=== PATIENT | female | born 1955 | race African-American/Black ===

== ENCOUNTER 2020-11-19 09:08 | Inpatient (IN) | payer MEDICAID, MEDICARE ==
[~2020-11-19] VITALS: Ht 172.7 cm; Wt 111.7 kg
[2020-11-19] MEDS ORDERED: SODIUM CHLORIDE 0.9% 1,000 ML IV ONE (09:45)
[2020-11-19 10:29] LABS: Basophils # (auto) 0.1 10 ^3/uL (0-0.2); Basophils % (auto) 0.5 % (0.0-2.0); Eosinophils # (auto) 0.1 10 ^3/uL (0-0.8); Hematocrit 45.7 % (36.0-46.0); Hemoglobin 15.3 g/dL (12.2-16.2); Lymphocytes # (auto) 2.6 10 ^3/uL (0.4-5.4); Lymphocytes % (auto) 20.3 % (10.0-50.0); Mean Corpuscular Hemoglobin 31.4 pg (28.0-32.0); Mean Corpuscular Hgb Conc. 33.6 g/dL (32.0-36.0); Mean Corpuscular Volume 93.6 fL (80.0-100.0); Monocytes # (auto) 0.6 10 ^3/uL (0-1.3); Monocytes % (auto) 4.6 % (0.0-12.0); Neutrophils # (auto) 9.4 10 ^3/uL (1.6-8.6); Neutrophils % (auto) 73.6 % (37.0-80.0); Nucleated Red Blood Cells % 0.3 %; Platelet Count (auto) 277 10^3/uL (140-450); Red Blood Cells 4.88 10^6/uL (4.0-5.20); Red Cell Distribution Width 15.5 % (11.8-14.3); White Blood Cell 12.7 10^3/uL (4.4-10.8)
[2020-11-19 10:42] LABS: Albumin 3.6 g/dL (3.4-5.0); Calcium 8.8 mg/dL (8.5-10.1); Potassium 3.4 mmol/L (3.5-5.1)
[2020-11-19 10:48] LABS: BUN/Creatinine Ratio 10.5; Bilirubin, Total 0.5 mg/dL (0.2-1.0); Total Protein 7.8 g/dL (6.4-8.2)
[2020-11-19] MEDS ORDERED: POTASSIUM EFFERVESENT TAB 25 MEQ PO ONE (12:30)
[2020-11-19 12:47] LABS: Urine Bacteria FEW /hpf (None Seen); Urine Blood 1+ /uL (Negative); Urine Hyaline Cast FEW /lpf (0 - 2); Urine Specific Gravity 1.008 (1.001-1.035); Urine WBC 8 /hpf (0 - 5)
[2020-11-19] MEDS ORDERED: IOHEXOL 350 MG/ML 100ML IJ ONE (13:44)
[2020-11-19] MEDS ORDERED: ASPirin-EC 81 mg tab PO ONE (13:45)
[2020-11-19] MEDS ORDERED: HEPARIN SODIUM (PORCINE) 5000 UNITS/ML 1ML VIAL IV ONE (14:30)
[2020-11-19 15:21] LABS: INR 1.14 (0.9-1.15); Partial Thromboplastin Time 31.7 sec (23.0-31.2)
[2020-11-19] MEDS ORDERED: NITROGLYCERIN 0.4 MG SL TAB SL PRN (15:45)
[2020-11-19] MEDS ORDERED: MORPHINE SULF INJ 2 MG/ML SYRINGE 1ML IV PRN ×2 (15:45→16:15)
[2020-11-19] MEDS: HEPARIN DRIP/D5W 100UNITS/ML 250 ML IV SCH (15:52)
[2020-11-19] MEDS ORDERED: DEXTROSE (50%) 50ML SYRG IV PRN (16:15)
[2020-11-19] MEDS ORDERED: TEMAZEPAM 15 MG CAP PO PRN (16:15)
[2020-11-19] MEDS ORDERED: ACETAMINOPHEN 500 MG TAB PO PRN (16:15)
[2020-11-19] MEDS ORDERED: PROMETHAZINE HCL 25 MG/ML 1ML IV PRN (16:15)
[2020-11-19] MEDS ORDERED: traMADol HCL 50 MG TAB PO PRN (16:15)
[2020-11-19] MEDS: SODIUM CHLORIDE 0.9% 1,000 ML IV SCH (16:29)
[2020-11-19] MEDS: ACCU-CHEK COMFORT CURVE STRIP VI SCH ×2 (17:17→22:12)
[2020-11-19] MEDS: InsuLIN REG 1unit/0.01ml Soln (100units/ml) SC SCH ×2 (17:21→22:00)
[2020-11-19 17:49] VITALS: BP 153/94
[2020-11-19 18:00] VITALS: BP 153/94
[2020-11-19] MEDS ORDERED: LISI-707 PO (18:43)
[2020-11-19 20:00] VITALS: BP 155/108
[2020-11-19 21:00] VITALS: BP 149/104
[2020-11-19] MEDS: FAMOTIDINE 20 MG TAB PO SCH (21:24)
[2020-11-19 22:00] VITALS: BP 152/105
[2020-11-19 23:00] VITALS: BP 127/97
[2020-11-19 23:26] LABS: INR 1.19 (0.9-1.15)
[2020-11-19 23:28] LABS: Partial Thromboplastin Time > 139.0 sec (23.0-31.2)
[2020-11-20] VITALS (22 sets, daily range): BP systolic 119–156; BP diastolic 75–108
[2020-11-20 03:54] LABS: Basophils # (auto) 0.1 10 ^3/uL (0-0.2); Basophils % (auto) 0.9 % (0.0-2.0); Eosinophils # (auto) 0.1 10 ^3/uL (0-0.8); Eosinophils % (auto) 0.8 % (0.0-7.0); Hematocrit 42.7 % (36.0-46.0); Hemoglobin 14.2 g/dL (12.2-16.2); Lymphocytes # (auto) 3.2 10 ^3/uL (0.4-5.4); Mean Corpuscular Hemoglobin 31.6 pg (28.0-32.0); Mean Corpuscular Hgb Conc. 33.4 g/dL (32.0-36.0); Mean Corpuscular Volume 94.6 fL (80.0-100.0); Monocytes # (auto) 0.8 10 ^3/uL (0-1.3); Monocytes % (auto) 9.8 % (0.0-12.0); Neutrophils # (auto) 4.5 10 ^3/uL (1.6-8.6); Neutrophils % (auto) 51.5 % (37.0-80.0); Nucleated Red Blood Cells % 0.1 %; Platelet Count (auto) 206 10^3/uL (140-450); Red Blood Cells 4.51 10^6/uL (4.0-5.20); Red Cell Distribution Width 15.3 % (11.8-14.3); White Blood Cell 8.7 10^3/uL (4.4-10.8)
[2020-11-20 04:15] LABS: Albumin 3.1 g/dL (3.4-5.0); Calcium 8.2 mg/dL (8.5-10.1); Potassium 3.3 mmol/L (3.5-5.1)
[2020-11-20 04:19] LABS: BUN/Creatinine Ratio 13.5; Bilirubin, Total 0.7 mg/dL (0.2-1.0); Total Protein 6.6 g/dL (6.4-8.2)
[2020-11-20] MEDS: SODIUM CHLORIDE 0.9% 1,000 ML IV SCH ×3 (04:34→21:53)
[2020-11-20 05:18] LABS: Partial Thromboplastin Time > 139.0 sec (23.0-31.2)
[2020-11-20] MEDS: ACCU-CHEK COMFORT CURVE STRIP VI SCH ×4 (06:02→21:28)
[2020-11-20] MEDS: InsuLIN REG 1unit/0.01ml Soln (100units/ml) SC SCH ×4 (06:02→21:28)
[2020-11-20] MEDS: HEPARIN DRIP/D5W 100UNITS/ML 250 ML IV SCH (06:48)
[2020-11-20] MEDS ORDERED: POTASSIUM CHL 20MEQ/100ML 100 ML IV ONE ×2 (08:28→08:30)
[2020-11-20] MEDS: FAMOTIDINE 20 MG TAB PO SCH ×2 (09:36→21:27)
[2020-11-20] MEDS ORDERED: fentaNYL CITRATE 100 MCG/2 ML VL ONE (09:50)
[2020-11-20] MEDS ORDERED: LIDOCAINE 2%HCL (LOCAL ANESTH.) INJ 20ML MDV ONE (09:50)
[2020-11-20] MEDS ORDERED: IOHEXOL 350 MG/ML 100ML IJ ONE (09:50)
[2020-11-20] MEDS ORDERED: MIDAZOLAM HCL 1MG/1ML-2 ML VIAL ONE (09:50)
[2020-11-20] MEDS ORDERED: ANGIOMAX 250 MG VIAL IV ONE (10:49)
[2020-11-20] MEDS ORDERED: SODIUM CHL 0.9% 100 ML ONE (10:49)
[2020-11-20] MEDS ORDERED: METOPROLOL TARTRATE 50 MG TAB PO ONE (11:00)
[2020-11-20] MEDS ORDERED: LISINOPRIL 20 MG TAB PO ONE (11:00)
[2020-11-20] MEDS ORDERED: ASPirin 81 mg TAB PO ONE (11:00)
[2020-11-20] MEDS ORDERED: ATORVASTATIN 20 MG TAB PO ONE (11:00)
[2020-11-20] MEDS ORDERED: RIVAROXABAN 15 MG TAB PO ONE (12:30)
[2020-11-20 14:01] LABS: Cholesterol 151 mg/dL (< 200); HDL Cholesterol 57 mg/dL (40-59); LDL Cholesterol 76 mg/dL (< 100); Triglycerides 127 mg/dL (< 150)
[2020-11-20] MEDS: ATORVASTATIN 20 MG TAB PO SCH (21:26)
[2020-11-20] MEDS: RIVAROXABAN 15 MG TAB PO SCH (21:27)
[2020-11-20] MEDS: METOPROLOL TARTRATE 50 MG TAB PO SCH (21:27)
[2020-11-21] VITALS (23 sets, daily range): BP systolic 124–165; BP diastolic 73–95
[2020-11-21] MEDS: InsuLIN REG 1unit/0.01ml Soln (100units/ml) SC SCH ×4 (06:12→22:05)
[2020-11-21] MEDS: ACCU-CHEK COMFORT CURVE STRIP VI SCH ×4 (06:12→22:14)
[2020-11-21] MEDS: SODIUM CHLORIDE 0.9% 1,000 ML IV SCH ×2 (08:15→17:21)
[2020-11-21] MEDS: ASPirin 81 mg TAB PO SCH (09:26)
[2020-11-21] MEDS: METOPROLOL TARTRATE 50 MG TAB PO SCH ×2 (09:26→22:13)
[2020-11-21] MEDS: LISINOPRIL 20 MG TAB PO SCH (09:26)
[2020-11-21] MEDS: RIVAROXABAN 15 MG TAB PO SCH ×2 (09:27→22:00)
[2020-11-21] MEDS: FAMOTIDINE 20 MG TAB PO SCH ×2 (09:27→22:13)
[2020-11-21] MEDS: ATORVASTATIN 20 MG TAB PO SCH (22:13)
[2020-11-22] VITALS (11 sets, daily range): BP systolic 127–152; BP diastolic 73–87
[2020-11-22] MEDS: SODIUM CHLORIDE 0.9% 1,000 ML IV SCH ×2 (02:25→15:28)
[2020-11-22 03:48] LABS: Basophils # (auto) 0.1 10 ^3/uL (0-0.2); Basophils % (auto) 0.8 % (0.0-2.0); Eosinophils # (auto) 0.2 10 ^3/uL (0-0.8); Eosinophils % (auto) 2.6 % (0.0-7.0); Hematocrit 35.1 % (36.0-46.0); Hemoglobin 11.8 g/dL (12.2-16.2); Lymphocytes # (auto) 2.3 10 ^3/uL (0.4-5.4); Lymphocytes % (auto) 34.2 % (10.0-50.0); Mean Corpuscular Hgb Conc. 33.6 g/dL (32.0-36.0); Mean Corpuscular Volume 95.3 fL (80.0-100.0); Monocytes # (auto) 0.7 10 ^3/uL (0-1.3); Monocytes % (auto) 10.4 % (0.0-12.0); Neutrophils # (auto) 3.5 10 ^3/uL (1.6-8.6); Nucleated Red Blood Cells % 0.1 %; Platelet Count (auto) 187 10^3/uL (140-450); Red Blood Cells 3.69 10^6/uL (4.0-5.20); Red Cell Distribution Width 14.9 % (11.8-14.3); White Blood Cell 6.8 10^3/uL (4.4-10.8)
[2020-11-22 04:02] LABS: Albumin 2.6 g/dL (3.4-5.0); Calcium 7.7 mg/dL (8.5-10.1); Potassium 3.6 mmol/L (3.5-5.1)
[2020-11-22 04:06] LABS: BUN/Creatinine Ratio 13.8; Bilirubin, Total 0.6 mg/dL (0.2-1.0); Total Protein 5.8 g/dL (6.4-8.2)
[2020-11-22] MEDS: InsuLIN REG 1unit/0.01ml Soln (100units/ml) SC SCH ×2 (06:06→11:30)
[2020-11-22] MEDS: ACCU-CHEK COMFORT CURVE STRIP VI SCH ×2 (06:06→12:43)
[2020-11-22] MEDS: ASPirin 81 mg TAB PO SCH (09:29)
[2020-11-22] MEDS: RIVAROXABAN 15 MG TAB PO SCH (09:29)
[2020-11-22] MEDS: FAMOTIDINE 20 MG TAB PO SCH (09:29)
[2020-11-22] MEDS: METOPROLOL TARTRATE 50 MG TAB PO SCH (09:30)
[2020-11-22] MEDS: LISINOPRIL 20 MG TAB PO SCH (09:30)
== END 2020-11-22 16:21 | disposition home or self-care (01) | DRG 134 ==
LOC: EDBD 09:08 → ER 09:08 → TELE 15:40 → ICU WEST 18:00 → TELE-CENTR 11-22 08:03
PROVIDERS: ADMIT Internal Medicine; ATTEND Family Medicine
PROC: B31T1ZZ Fluoroscopy of Left Pulmonary Artery using Low Osmolar Contrast (ICD-10-PCS; principal; 2020-11-20)
PROC: B31S1ZZ Fluoroscopy of Right Pulmonary Artery using Low Osmolar Contrast (ICD-10-PCS; 2020-11-20)
PROC: 02CR3ZZ Extirpation of Matter from Left Pulmonary Artery, Percutaneous Approach (ICD-10-PCS; 2020-11-20)
DX: I26.99 Other pulmonary embolism without acute cor pulmonale (principal); I21.4 Non-ST elevation (NSTEMI) myocardial infarction; J96.01 Acute respiratory failure with hypoxia; I27.20 Pulmonary hypertension, unspecified; I50.811 Acute right heart failure; E11.65 Type 2 diabetes mellitus with hyperglycemia; E66.01 Morbid (severe) obesity due to excess calories; I11.0 Hypertensive heart disease with heart failure; E87.6 Hypokalemia; I49.3 Ventricular premature depolarization; J98.11 Atelectasis; E78.00 Pure hypercholesterolemia, unspecified; Z20.822 Contact with and (suspected) exposure to COVID-19; Z68.36 Body mass index [BMI] 36.0-36.9, adult; Z79.01 Long term (current) use of anticoagulants; Z86.711 Personal history of pulmonary embolism; E78.5 Hyperlipidemia, unspecified; F17.210 Nicotine dependence, cigarettes, uncomplicated; Z79.4 Long term (current) use of insulin; Z83.3 Family history of diabetes mellitus; N30.01 Acute cystitis with hematuria
CPT/HCPCS: 36415; 37184; 71045; 71275; 75743; 80053; 80061; 81001; 82550; 82962; 83036; 83735; 84443; 84484; 85025; 85379; 85610; 85730; 87081; 87426; 93005; 93306; 93970; 96361; 96374; 96375; 99152; 99153; 99291; G0378; J1815; J2250; J3480

== ENCOUNTER 2020-12-11 10:33 | Emergency (ER) | payer MEDICAID, MEDICARE ==
[~2020-12-11] VITALS: Ht 172.7 cm; Wt 106.6 kg
[~2020-12-11 10:33] MED LIST: LISI-707 PO
[2020-12-11 11:36] LABS: Urine Bacteria MOD /hpf (None Seen); Urine Blood 3+ /uL (Negative); Urine Mucus FEW (None Seen); Urine Specific Gravity 1.014 (1.001-1.035); Urine WBC 91 /hpf (0 - 5); Urine WBC Clumps PRESENT /hpf (None Seen)
[2020-12-11 12:01] LABS: Basophils # (auto) 0.1 10 ^3/uL (0-0.2); Basophils % (auto) 1.2 % (0.0-2.0); Eosinophils # (auto) 0.1 10 ^3/uL (0-0.8); Hematocrit 41.4 % (36.0-46.0); Hemoglobin 13.9 g/dL (12.2-16.2); Lymphocytes # (auto) 1.8 10 ^3/uL (0.4-5.4); Lymphocytes % (auto) 33.6 % (10.0-50.0); Mean Corpuscular Hemoglobin 30.7 pg (28.0-32.0); Mean Corpuscular Hgb Conc. 33.6 g/dL (32.0-36.0); Mean Corpuscular Volume 91.3 fL (80.0-100.0); Monocytes # (auto) 0.4 10 ^3/uL (0-1.3); Monocytes % (auto) 7.7 % (0.0-12.0); Neutrophils % (auto) 55.5 % (37.0-80.0); Nucleated Red Blood Cells % 0.1 %; Platelet Count (auto) 381 10^3/uL (140-450); Red Blood Cells 4.53 10^6/uL (4.0-5.20); Red Cell Distribution Width 14.4 % (11.8-14.3); White Blood Cell 5.3 10^3/uL (4.4-10.8)
[2020-12-11 12:15] LABS: INR 1.15 (0.9-1.15); Partial Thromboplastin Time 35.3 sec (23.0-31.2)
[2020-12-11 12:19] LABS: Albumin 3.6 g/dL (3.4-5.0); Magnesium 2.2 mg/dL (1.6-2.6); Potassium 3.6 mmol/L (3.5-5.1)
[2020-12-11 12:24] LABS: BUN/Creatinine Ratio 13.4; Bilirubin, Total 0.5 mg/dL (0.2-1.0); Total Protein 7.5 g/dL (6.4-8.2)
[2020-12-11] MEDS ORDERED: SODIUM CHLORIDE 0.9% 1,000 ML IV ONE (15:00)
[2020-12-11] MEDS ORDERED: cefTRIAXone 1GM/50ML D5W 50 ML IV ONE (15:00)
[2020-12-12 07:32] VITALS: BP 163/82
== END 2020-12-12 07:44 | disposition short-term general hospital (02) ==
LOC: ER 10:33
DX: N20.0 Calculus of kidney (principal); N39.0 Urinary tract infection, site not specified; Z20.822 Contact with and (suspected) exposure to COVID-19
CPT/HCPCS: 36415; 74176; 80053; 81001; 83735; 85025; 85610; 85730; 87426; 93005; 96365; 99285; J0696; J7030

== ENCOUNTER 2020-12-16 12:28 | Emergency (ER) | payer MEDICAID, MEDICARE ==
[~2020-12-16] VITALS: Ht 172.7 cm; Wt 104.3 kg
[2020-12-16 13:40] LABS: Urine Bacteria FEW /hpf (None Seen); Urine Blood 3+ /uL (Negative); Urine Specific Gravity 1.007 (1.001-1.035); Urine WBC 53 /hpf (0 - 5)
[2020-12-16 14:00] VITALS: BP 128/74
== END 2020-12-16 14:52 | disposition home or self-care (01) ==
LOC: ER 12:28
DX: N39.0 Urinary tract infection, site not specified (principal); N20.0 Calculus of kidney; N28.89 Other specified disorders of kidney and ureter; I10 Essential (primary) hypertension; E78.5 Hyperlipidemia, unspecified; E11.9 Type 2 diabetes mellitus without complications; F17.210 Nicotine dependence, cigarettes, uncomplicated; Z90.710 Acquired absence of both cervix and uterus; Z79.899 Other long term (current) drug therapy
CPT/HCPCS: 81001

== ENCOUNTER 2021-01-06 22:10 | Emergency (ER) | payer MEDICAID ==
[~2021-01-06] VITALS: Ht 175.3 cm; Wt 90.7 kg
[2021-01-06 22:59] LABS: Basophils # (auto) 0 10 ^3/uL (0-0.2); Basophils % (auto) 0.4 % (0.0-2.0); Eosinophils # (auto) 0.2 10 ^3/uL (0-0.8); Eosinophils % (auto) 2.3 % (0.0-7.0); Hematocrit 39.3 % (36.0-46.0); Hemoglobin 13.6 g/dL (12.2-16.2); Lymphocytes # (auto) 2.2 10 ^3/uL (0.4-5.4); Lymphocytes % (auto) 29.3 % (10.0-50.0); Mean Corpuscular Hemoglobin 30.9 pg (28.0-32.0); Mean Corpuscular Hgb Conc. 34.6 g/dL (32.0-36.0); Mean Corpuscular Volume 89.1 fL (80.0-100.0); Monocytes # (auto) 0.6 10 ^3/uL (0-1.3); Neutrophils # (auto) 4.5 10 ^3/uL (1.6-8.6); Platelet Count (auto) 343 10^3/uL (140-450); Red Blood Cells 4.41 10^6/uL (4.0-5.20); Red Cell Distribution Width 14.3 % (11.8-14.3); White Blood Cell 7.5 10^3/uL (4.4-10.8)
[2021-01-06 23:04] LABS: Albumin 3.7 g/dL (3.4-5.0); Calcium 8.7 mg/dL (8.5-10.1); Potassium 3.5 mmol/L (3.5-5.1)
[2021-01-06 23:08] LABS: BUN/Creatinine Ratio 12.4; Bilirubin, Total 0.6 mg/dL (0.2-1.0); Total Protein 7.6 g/dL (6.4-8.2)
[2021-01-06 23:17] LABS: Nucleated Red Blood Cells % 0.1 %
[2021-01-07 00:48] LABS: Urine Bacteria MANY /hpf (None Seen); Urine Blood 3+ /uL (Negative); Urine Specific Gravity 1.008 (1.001-1.035); Urine WBC 18 /hpf (0 - 5); Urine WBC Clumps PRESENT /hpf (None Seen)
[2021-01-07] MEDS ORDERED: levoFLOXacin 500MG 100 ML IV ONE (03:45)
[2021-01-07] MEDS ORDERED: IOHEXOL 300 MG/ML 100ML BOTTLE IJ ONE (03:49)
[2021-01-07 09:54] VITALS: BP 164/90
== END 2021-01-07 10:11 | disposition home or self-care (01) ==
LOC: ER 22:10 → EDBD 22:10 → ER 01-07 10:11
DX: N39.0 Urinary tract infection, site not specified (principal); N20.0 Calculus of kidney; R31.9 Hematuria, unspecified; N28.89 Other specified disorders of kidney and ureter; I26.99 Other pulmonary embolism without acute cor pulmonale; I10 Essential (primary) hypertension; E11.9 Type 2 diabetes mellitus without complications; E78.5 Hyperlipidemia, unspecified; F17.210 Nicotine dependence, cigarettes, uncomplicated; Z90.710 Acquired absence of both cervix and uterus; Z79.899 Other long term (current) drug therapy; Z20.822 Contact with and (suspected) exposure to COVID-19
CPT/HCPCS: 36415; 74177; 80053; 81001; 85025; 85049; 87426; 96365; 99285; J1956; Q9967

== ENCOUNTER 2021-07-18 12:58 | Emergency (ER) | payer MEDICAID ==
[~2021-07-18] VITALS: Ht 170.2 cm; Wt 99.3 kg
[2021-07-18 14:17] LABS: Basophils # (auto) 0.1 10 ^3/uL (0-0.2); Eosinophils # (auto) 0 10 ^3/uL (0-0.8); Eosinophils % (auto) 0.1 % (0.0-7.0); Hematocrit 42.4 % (36.0-46.0); Hemoglobin 14.3 g/dL (12.2-16.2); Lymphocytes # (auto) 1.3 10 ^3/uL (0.4-5.4); Lymphocytes % (auto) 17.8 % (10.0-50.0); Mean Corpuscular Hgb Conc. 33.8 g/dL (32.0-36.0); Mean Corpuscular Volume 85.9 fL (80.0-100.0); Monocytes # (auto) 0.6 10 ^3/uL (0-1.3); Monocytes % (auto) 8.3 % (0.0-12.0); Neutrophils # (auto) 5.3 10 ^3/uL (1.6-8.6); Neutrophils % (auto) 72.8 % (37.0-80.0); Nucleated Red Blood Cells % 0.5 %; Red Blood Cells 4.94 10^6/uL (4.0-5.20); White Blood Cell 7.2 10^3/uL (4.4-10.8)
[2021-07-18 14:37] LABS: Albumin 3.6 g/dL (3.4-5.0); Calcium 8.8 mg/dL (8.5-10.1); Potassium 4.6 mmol/L (3.5-5.1)
[2021-07-18 14:48] LABS: BUN/Creatinine Ratio 13.9; Bilirubin, Total 0.3 mg/dL (0.2-1.0); Magnesium 3.1 mg/dL (1.6-2.6); Total Protein 8.4 g/dL (6.4-8.2)
[2021-07-18 19:44] VITALS: BP 123/69
== END 2021-07-18 20:17 | disposition home or self-care (01) ==
LOC: ER 12:58
DX: U07.1 COVID-19 (principal); J12.82 Pneumonia due to coronavirus disease 2019; M79.10 Myalgia, unspecified site; R51.9 Headache, unspecified; E66.9 Obesity, unspecified; F17.210 Nicotine dependence, cigarettes, uncomplicated; E11.9 Type 2 diabetes mellitus without complications; E78.5 Hyperlipidemia, unspecified; I10 Essential (primary) hypertension; Z90.710 Acquired absence of both cervix and uterus; Z68.34 Body mass index [BMI] 34.0-34.9, adult
CPT/HCPCS: 36415; 71045; 74176; 80053; 83690; 83735; 84484; 85025; 87426